=== PATIENT | female | born 1940 | race Caucasian/White ===

== ENCOUNTER 2020-09-02 11:30 | Outpatient (CLI) | payer MEDICARE ==
[2020-09-02 18:08] LABS: #Basophils 0.1 thou/uL (0.0-0.2); #Monocytes 0.4 thou/uL (0.11-0.59); #Neutrophils 3.2 thou/uL (1.40-6.50); %Basophils 1.2 % (0.0-1.0); %Eosinophils 0.3 % (0.0-10.0); %Lymphocytes 35.7 % (21.0-51.0); %Monocytes 7.3 % (0.0-10.0); %Neutrophils 55.4 % (42.0-75.0); Hemoglobin 14.4 g/dL (12.0-16.0); Mean Corpuscular HGB CONC 31.9 g/dL (32.0-36.0); Mean Corpuscular Hemoglobin 29.7 pg (27.0-31.0); Mean Corpuscular Volume 93.1 fL (78.0-98.0); Mean Platelet Volume 9.2 fL (7.4-10.4); Platelet Count 189 thou/uL (130-400); RBC Distribution Width 12.3 % (11.5-14.5); Red Blood Cell (RBC) Count 4.84 mill/uL (4.20-5.40); White Blood Cell (WBC) Count 5.7 thou/uL (4.8-10.8)
[2020-09-02 18:15] LABS: ALT (SGPT) 7 U/L (8-55); AST (SGOT) 14 U/L (5-34); Albumin 4.1 g/dL (3.4-4.8); Alkaline Phosphatase 100 U/L (40-110); Anion Gap 18 mmol/L (10-20); BUN (Urea Nitrogen) 20 mg/dL (9.8-20.1); Bilirubin, Total 0.4 mg/dL (0.2-1.2); Calc. Creatinine Clearance 0 mL/min (70-130); Carbon Dioxide 21 mmol/L (23-31); Cardiac Risk 3.7 (Less than 4.5); Chloride 108 mmol/L (98-107); Cholesterol 191 mg/dl (< 200 Desired); Globulin 2.5 g/dL (2.4-3.5); Glucose 76 mg/dL (83-110); HDL Cholesterol 52 mg/dL (>60 Neg Risk); LDL Cholesterol, Calculated 124 mg/dL; Potassium 4.7 mmol/L (3.5-5.1); Protein, Total 6.6 g/dL (5.8-8.1); Sodium 142 mmol/L (136-145); Triglycerides 74 mg/dL (Less than 150)
[2020-09-02 22:03] LABS: Free T4 (Free Thyroxine) 1.1 ng/dL (0.70-1.48)
[2020-09-03 04:23] LABS: Follow-up Chemistry Comp? YES; Follow-up Result - Chemistry REPORT FAXED
== END 2020-09-02 11:31 | disposition home or self-care (01) ==
LOC: MADLAB 11:30
PROVIDERS: ATTEND Family Medicine
DX: E78.5 Hyperlipidemia, unspecified (principal); G11.9 Hereditary ataxia, unspecified; I10 Essential (primary) hypertension
CPT/HCPCS: 80053; 80061; 84439; 84443; 84479; 85025